=== PATIENT | male | born 1990 | race Caucasian/White ===

== ENCOUNTER 2016-12-06 19:00 | Emergency (ER) | payer OTHER ==
[~2016-12-06] VITALS: Ht 177.8 cm; Wt 161.0 kg
[2016-12-06 19:20] VITALS: Ht 177.8 cm; Wt 161.0 kg
[2016-12-06 21:53] LABS: URINE BLOOD (Dip) POC Trace-intact (NEGATIVE)
[2016-12-06] MEDS ORDERED: CEFTRIAXONE 250 MG INJ IM ONE (22:00)
[2016-12-06] MEDS ORDERED: AZITHROMYCIN 250 MG TAB PO ONE (22:00)
[2016-12-06 23:22] VITALS: BP 151/75; PULSE 74; RESP 20; TEMP 97.6
--- NOTE | 2016-12-06 23:31 | ERD ---
ER Documentation Chief Complaint Date/Time DATE: 12/06/16 TIME: 23:28 Chief Complaint requesting STD check HPI This is a 26-year-old male presents to the ER requesting STD check. Patient had unprotected sex on Sunday. Per patient his partner told him that she had sexual intercourse in 15 men since April. Patient does not have any penile discharge he denies any urinary frequency or dysuria. Patient denies any testicular pain. Patient was wearing a condom, however he took it off. ROS 12 point review of systems was done, all negative except per HPI. Allergies Allergies: Coded Allergies: No Known Allergy (Unverified , 12/06/16) PMhx/Soc History of Surgery: No Anesthesia Reaction: No Hx Neurological Disorder: No Hx Respiratory Disorders: No Hx Cardiac Disorders: No Hx Psychiatric Problems: No Hx Miscellaneous Medical Probl: No Physical Exam Vitals Vital Signs Date Time Temp Pulse Resp B/P Pulse Ox O2 Delivery O2 Flow Rate FiO2 12/06/16 23:22 97.6 74 20 151/75 100 Room Air 12/06/16 19:20 97.8 88 20 136/77 99 Physical Exam GENERAL: The patient is well developed and appropriate for usual state of health , in no apparent distress. HEENT: Atraumatic CHEST: Clear to auscultation bilaterally. There are no rales, wheezes or rhonchi. HEART: Regular rate and rhythm. No murmurs, clicks, rubs or gallops. ABDOMEN: Soft, nontender and nondistended. No suprapubic tenderness SKIN: The skin is warm and dry. Results 24 hrs Laboratory Tests Test 12/06/16 21:54 Bedside Urine pH (LAB) 6.0 Bedside Urine Protein (LAB) Negative Bedside Urine Glucose (UA) Negative Bedside Urine Ketones (LAB) Negative Bedside Urine Blood Trace-intact Bedside Urine Nitrite (LAB) Negative Bedside Urine Leukocyte Esterase (L Negative Current Medications Medications (Trade) Dose Ordered Sig/Darian Route PRN Reason Start Time Stop Time Status Last Admin Dose Admin Ceftriaxone Sodium (Rocephin) 250 mg ONCE ONCE IM 12/06/16 22:00 12/06/16 22:01 DC 12/06/16 22:16 Azithromycin (Zithromax) 1,000 mg ONCE ONCE PO 12/06/16 22:00 12/06/16 22:01 DC 12/06/16 22:16 Procedures/MDM This is a 26-year-old male that presents to the ER for STD check. At this time patient is asymptomatic. He was prophylactically treated for chlamydia and gonorrhea. Patient urine will be tested for Chlamydia gonorrhea, he was advised to follow-up at his local clinic for syphilis and HIV testing. Patient was advised to wear condoms at all times. She needs to follow-up with his primary care doctor within 1-2 days or return to ER sooner if symptoms worsen. My medical decision making was shared with the patient he understands and agrees with plan. Departure Diagnosis: Primary Impression: STD (male) Condition: Stable Patient Instructions: Teens: STD Symptoms in Men Additional Instructions: Call your primary care doctor TOMORROW for an appointment during the next 1-2 days.See the doctor sooner or return here if your condition worsens before your appointment time. GUERRERO LOPEZ December 06, 2016 23:31
== END 2016-12-06 23:25 | disposition home or self-care (01) ==
LOC: FTE 19:00
DX: A64 Unspecified sexually transmitted disease (principal)
CPT/HCPCS: 81003; 87591; 96372; J0696; Z7502; Z7610